=== PATIENT | male | born 1995 | race Caucasian/White ===

== ENCOUNTER → 2017-04-03 | Outpatient (CLI) | payer OTHER, SELFPAY | PROVIDERS: Visit Provider Nurse Practitioner Family | DX: R53.83 Other fatigue (principal); E55.9 Vitamin D deficiency, unspecified | CPT/HCPCS: 80053; 80061; 82306; 83036; 84439; 84443; 85025 ==

== ENCOUNTER → 2017-04-13 | Outpatient (RCR) | payer BC, OTHER, MEDICAID, SELFPAY | LOC: PT 01-19 14:14 | PROVIDERS: Visit Provider Nurse Practitioner Family | DX: S49.91XD Unspecified injury of right shoulder and upper arm, subsequent encounter (principal) | CPT/HCPCS: 97033; 97035; 97110; 97140 ==

== ENCOUNTER → 2018-10-22 16:49 | Outpatient (CLI) | payer OTHER, SELFPAY ==
[2018-10-22 17:21] LABS: Basophils # 0.1 K/mm3 (0-0.2); Basophils % 0.5 % (0.1-2.0); Eosinophils # 0.3 K/mm3 (0.0-0.4); Eosinophils % 2.8 % (0.1-12.0); Hematocrit 48.2 % (42.0-52.0); Hemoglobin 15.1 g/dL (14.1-18.0); Lymphocytes # 2.6 K/mm3 (0.7-4.5); Lymphocytes % 25.2 % (10-50); Mean Corpuscular HGB Conc 31.3 g/dL (31.8-35.4); Mean Corpuscular Hemoglobin 27.5 pg (27.0-31.2); Mean Corpuscular Volume 87.8 fl (80-94); Mean Platelet Volume 7.4 fl (7.4-10.4); Monocytes # 0.6 K/mm3 (0.1-1.0); Monocytes % 5.3 % (1.7-9.3); Neutrophils # 6.9 K/mm3 (1.8-7.8); Neutrophils % 66.2 % (37.0-80.0); Platelet Count 366 K/mm3 (142-424); Red Blood Count 5.48 M/mm3 (4.60-6.20); Red Cell Distribution Width 12.9 % (11.5-17.5); White Blood Count 10.5 K/mm3 (4.8-10.8)
[2018-10-22 19:53] LABS: Alanine Aminotransferase 48 U/L (12-78); Albumin Level 3.8 gm/dL (3.4-5.0); Alkaline Phosphatase 54 U/L (46-116); Anion Gap 17.2 mEq/L (5-15); Aspartate Amino Transferase 23 U/L (15-37); Bilirubin,Total 0.4 mg/dL (0.2-1.0); Blood Urea Nitrogen 19 mg/dL (7-18); Calcium 9.8 mg/dL (8.5-10.1); Carbon Dioxide 24 mmol/L (21.0-32.0); Chloride 104 mmol/L (98-107); Chol/HDL Ratio 5.5 (1-3.5); Cholesterol 243 mg/dL (140-200); Estimated Glomerular Filt Rate 85 ml/min (>60); GFR (African American) 102 ML/MIN (>60); Globulin 3.8 gm/dl (1.3-3.2); Glucose 99 mg/dL (74-106); HDL Cholesterol 44 mg/dL (27-67); LDL Cholesterol 154 mg/dL (0-130); Potassium 4.2 mmoL/L (3.5-5.1); Sodium 141 mmol/L (136-145); T4 (Thyroxine) 9.3 ug/dl (4.7-13.3); Thyroid Stimulating Hormone 2.97 uIU/ml (0.358-3.740); Total Protein,Serum 7.6 gm/dL (6.4-8.2); Triglycerides 227 mg/dL (30-200); VLDL Cholesterol 45 mg/dL (0-40)
[2018-10-22 22:10] LABS: Amphetamine/Metha Screen,Urine Negative ng/mL (<1000); Barbiturates Screen,Urine Negative ng/mL (<200); Benzodiazepines Screen,Urine Negative ng/mL (<200); Cannabinoid Screen,Urine Negative ng/mL (<50); Cocaine Screen,Urine Negative ng/mL (<300); Methadone Screen,Urine Negative ng/mL (<300); Opiate Screen,Urine Negative ng/mL (<300); Phencyclidine Screen,Urine Negative ng/mL (<25)
[2018-10-24 18:21] LABS: Vitamin D 25 Hydroxy 21.3 ng/mL (30.0-100.0)
== END ==
PROVIDERS: Visit Provider Nurse Practitioner Family
DX: E66.9 Obesity, unspecified (principal); E55.9 Vitamin D deficiency, unspecified
CPT/HCPCS: 80053; 80061; 80305; 82652; 84436; 84443; 85025

== ENCOUNTER → 2019-09-09 15:08 | Outpatient (CLI) | payer OTHER, SELFPAY ==
[2019-09-09 16:21] LABS: Chloride 103 mmol/L (98-107); Potassium 4.7 mmoL/L (3.5-5.1); Sodium 139 mmol/L (136-145)
[2019-09-09 16:23] LABS: Alanine Aminotransferase 32 U/L (12-78); Anion Gap 14.7 mEq/L (5-15); Aspartate Amino Transferase 34 U/L (17-59); Blood Urea Nitrogen 13 mg/dl (9-20); Carbon Dioxide 26 mmol/L (22.0-30.0); Estimated Glomerular Filt Rate 106 ml/min (>60); GFR (African American) 128 ML/MIN (>60)
[2019-09-09 16:24] LABS: Albumin Level 4.5 g/dl (3.5-5.0); Albumin/Globulin Ratio 1.5 (1.1-1.8); Alkaline Phosphatase 51 U/L (38-126); Bilirubin,Total 0.7 mg/dl (0.2-1.3); Calcium 10.2 mg/dl (8.4-10.2); Chol/HDL Ratio 4.7 (1-3.5); Cholesterol 193 mg/dl (140-200); Globulin 3.1 g/dL (1.3-3.2); Glucose 95 mg/dl (74-100); HDL Cholesterol 41 mg/dl (40-60); Total Protein,Serum 7.6 g/dl (6.3-8.2); Triglycerides 105 mg/dl (30-150); VLDL Cholesterol 21 mg/dL (0-40)
[2019-09-09 16:36] LABS: Direct LDL Cholesterol 151.28 mg/dL (100-129)
[2019-09-09 16:42] LABS: T4 (Thyroxine) 9.8 ug/dl (5.53-11.0)
[2019-09-09 16:55] LABS: Thyroid Stimulating Hormone 1.75 uIU/mL (0.465-4.68)
[2019-09-11 10:04] LABS: Vitamin D 25 Hydroxy 24.6 ng/mL (30.0-100.0)
== END ==
PROVIDERS: Visit Provider Nurse Practitioner Family
DX: E66.9 Obesity, unspecified (principal); E55.9 Vitamin D deficiency, unspecified
CPT/HCPCS: 80053; 80061; 82652; 84436; 84443

== ENCOUNTER 2021-02-27 11:27 | Emergency (ER) | payer OTHER, SELFPAY ==
[2021-02-27 11:35] VITALS: BMI 35.9
--- NOTE | 2021-02-27 11:35 | XR_ITS ---
PROCEDURE INFORMATION: Exam: XR Right Ankle Exam date and time: 02/27/2021 11:35 AM Age: 25 years old Clinical indication: Injury or trauma; Sprain or strain; Right; Injury date: 02/20/21; Injury details: Rolled ankle last week felt ok now can barely walk TECHNIQUE: Imaging protocol: XR Right ankle. Views: 3 or more views. COMPARISON: No relevant prior studies available. FINDINGS: Bones/joints: Normal. Soft tissues: There is a small Achilles enthesophyte. IMPRESSION: No acute findings.
--- NOTE | 2021-02-27 11:35 | XR_ITS ---
PROCEDURE INFORMATION: Exam: XR Right Foot Exam date and time: 02/27/2021 11:35 AM Age: 25 years old Clinical indication: Injury or trauma; Sprain or strain; Right; Injury date: 02/20/21; Injury details: Rolled ankle last week felt ok now can barely walk TECHNIQUE: Imaging protocol: XR Right foot. Views: 3 or more views. COMPARISON: No relevant prior studies available. FINDINGS: Bones/joints: There is a mild hallux valgus and metatarsus varus deformity. There is no acute fracture. Soft tissues: Normal. IMPRESSION: There is no acute fracture.
[2021-02-27 12:00] VITALS: BP 155/79; PULSE 53; RESP 20; TEMP 36.8; O2SAT 99; BMI 41.5
--- NOTE | 2021-02-27 12:38 | HMH.EDUTC ---
[facility] [place] Clinical Impression: Ankle sprain Qualifiers: Encounter type: initial encounter Involved ligament of ankle: unspecified ligament Laterality: right Qualified Code(s): S93.401A - Sprain of unspecified ligament of right ankle, initial encounter Disposition: Home, Self-Care Condition on Discharge: Good Instructions: How To Perform RICE (Rest, Ice, Compress, Elevate), How to Apply an Buster Wrap Additional Instructions: *weight bearing as tolerated *RICE, Rest the extremity, Ice 15-20 minutes 3-4 times daily, Compress- wear the buster wrap as discussed as much as possible to help reduce swelling and pain, Elevate the extremity when at rest *Buster wrap and air splint is for support and help control swelling, use it except in the shower. Be sure that is not to tight but not to loose either *Elevate when resting *Ibuprofen as directed on package every 6-8 hours as needed for pain an inflammation. If need something more can take Tylenol in between doses of Ibuprofen to help Immediately follow up with your family doctor for new or worsening of symptoms, or no noticeable improvement over the next 3-5 days Referrals: Roderick Morse MD [Primary Care Provider] - As needed Mae Rose DPM [Staff Physician] - Forms: Work/School Release Time of Disposition: 12:47 Medical Decision Making - Wild Inquiry Pt receiving controlled substance: No Wild was queried for this patient: No Vital Signs: 02/27/21 12:00 Temperature 98.3 F Temperature Source Oral Pulse Rate [Right Brachial] 53 L Respiratory Rate 20 Blood Pressure [Right Arm] 155/79 H Blood Pressure Mean [Right Arm] 104 Blood Pressure Source [Right Arm] Automatic Cuff Blood Pressure Position [Right Arm] Sitting 02 Sat by Pulse Oximetry 99 Oxygen Delivery Method Room Air - Radiology Data #1 Image(s): Ankle Image Reviewed: Yes I have reviewed radiologist's interpretation IMPRESSION: No acute findings. #2 Image(s): Foot/Toes Image Reviewed: Yes I have reviewed radiologist's interpretation IMPRESSION: There is no acute fracture. [facility] [place] General Stated complaint: Right Ankle injury 02/25/21 AO Time Seen by Provider: 02/27/21 12:39 Mode of Arrival: Ambulatory Source of Information: Patient Limitations: No Limitations Description of Symptoms (Recalled from Triage Doc. by RN): PATIENT C/O PAIN TO RIGHT ANKLE. HE REPORTS THAT HE ROLLED THE ANKLE LAST WEEKEND AND PAIN WAS WORSE WHEN HE WOKE UP SUNDAY HEENT Symptoms (Recalled from RN notes): No Resp Symptoms (Recalled from RN notes): No Skin Symptoms (Recalled from RN notes): No MS Symptoms (Recalled from RN notes): Yes Functional Status (Recalled from RN notes): WNL - History of Present Illness Provider Complaint: Patient states that he rolled his right foot and ankle last week States that he has been walking on it and it was doing a little better but when he woke up on Sunday it was hurting again and did not do anything new to hurt it so today when it was still hurting he came in to get it checked out - Related Data Allergies Allergy/AdvReac Type Severity Reaction Status Date / Time No Known Allergies Allergy Verified 10/08/19 15:26 - Worker's Comp Is this a Worker's Comp case?: No [facility] History - Hepatitis A Screen Drug use history?: No High risk sexual behaviors?: No History of sexually transmitted infection?: No Currently employed?: No Childcare worker?: No Do you have indoor plumbing?: Yes Do you have electricity?: Yes Attestation statement:: This patient has been screened for Hepatitis A risk factors. I have reviewed the patient's past medical history: Yes Medical History: Denies:: Diabetes Mellitus Type 1, Diabetes Mellitus Type 2 Laterality Cases: Bilateral: Tonsillectomy Other Surgeries: Yes: Appendectomy Amputation: No Fractures: No - Social History Smoking Status: Never smoker Alcohol Intake: never Substance Use Type: denies use Occupational S
[2021-02-27 12:55] VITALS: BP 155/79; PULSE 53; RESP 20; TEMP 36.8; O2SAT 99
== END 2021-02-27 13:00 | disposition home or self-care (01) ==
PROVIDERS: Emergency Provider Nurse Practitioner; PCP Emergency Medicine
DX: S93.401A Sprain of unspecified ligament of right ankle, initial encounter (principal); X50.1XXA Overexertion from prolonged static or awkward postures, initial encounter
CPT/HCPCS: 29515; 73610; 73630; 99203; G0463